=== PATIENT | female | born 1990 | race Caucasian/White ===

== ENCOUNTER 2017-08-02 12:21 | Emergency (ER) | payer OTHER ==
[2017-08-02 12:33] VITALS: BMI 24.3
--- NOTE | 2017-08-02 13:35 | PDOC ---
History of Present Illness - General Chief Complaint: Pain Stated Complaint: ABD PAIN (14 WKS ) Time Seen by Provider: 08/02/17 13:35 - History of Present Illness Initial Comments: 08/02/17 13:48 Ms. Oneill is a 26 yo female w/ no significant pmh who presents c/o a 2 day history of circumferential lower abdominal / lower back pain. She reports that this pain hurts all the way around and she cannot relate it to position, diet, change in urination, or any other factor. She had previously lost her first (although second produced her very health 14 month old son) and is worried this could be indicative of another threatened . She denies any bleeding currently but says that she had minimal spotting about a month ago. The patient denies chest pain, shortness of breath, headache and dizziness. Denies fever, chills, nausea, vomit, diarrhea and constipation. Denies dysuria, frequency, urgency and hematuria. Allergies: NKDA Past History - Past Medical History Allergies/Adverse Reactions: Allergies Allergy/AdvReac Type Severity Reaction Status Date / Time No Known Allergies Allergy Verified 08/02/17 12:29 Home Medications: Ambulatory Orders Vit No.130/Iron/FA [ Vitamins] 1 each PO DAILY #30 tablet 04/08 Acetaminophen [Tylenol -] 325 mg PO Q6H #20 tablet 08/02/17 Miconazole/Cleanser 17 On Wipe [Miconazole 3 Kit] 1 each VG ASDIR #1 kit Nitrofurantoin Monohyd/M-Cryst [Macrobid -] 100 mg PO BID #14 capsule 08/02/17 Asthma: No Cancer: No Cardiac Disorders: No COPD: No Diabetes: No HTN: No Seizures: No Thyroid Disease: No - Suicide/Smoking/Psychosocial Hx Smoking History: Never smoked Have you smoked in the past 12 months: No Information on smoking cessation initiated: No Hx Alcohol Use: No Drug/Substance Use Hx: No Substance Use Type: None Hx Substance Use Treatment: No Review of Systems - Review of Systems Comments:: 08/02/17 14:04 GENERAL/CONSTITUTIONAL: No fever or chills. No weakness. HEAD, EYES, EARS, NOSE AND THROAT: No change in vision. No ear pain or discharge. No sore throat. CARDIOVASCULAR: No chest pain or shortness of breath RESPIRATORY: No cough, wheezing, or hemoptysis. GASTROINTESTINAL: +Abdominal pain as described above. GENITOURINARY: No dysuria, frequency, or change in urination. MUSCULOSKELETAL: No joint or muscle swelling or pain. No neck or back pain. SKIN: No rash NEUROLOGIC: No headache, vertigo, loss of consciousness, or change in strength/ sensation. ENDOCRINE: No increased thirst. No abnormal weight change HEMATOLOGIC/LYMPHATIC: No anemia, easy bleeding, or history of blood clots. ALLERGIC/IMMUNOLOGIC: No hives or skin allergy. *Physical Exam - Vital Signs Last Vital Signs Temp Pulse Resp BP Pulse Ox 97.7 F 92 H 18 120/65 100 08/02/17 12:31 08/02/17 12:31 08/02/17 12:31 08/02/17 12:31 08/02/17 12:31 - Physical Exam Comments: 08/02/17 14:05 GENERAL: Awake, alert, and fully oriented, in no acute distress HEAD: No signs of trauma, normocephalic, atraumatic EYES: PERRLA, EOMI, sclera anicteric, conjunctiva clear ENT: Auricles normal inspection, hearing grossly normal, nares patent, oropharynx clear without exudates. Moist mucosa NECK: Normal ROM, supple, no lymphadenopathy, JVD, or masses LUNGS: No distress, speaks full sentences, clear to auscultation bilaterally HEART: Regular rate and rhythm, normal S1 and S2, no murmurs, rubs or gallops, peripheral pulses normal and equal bilaterally. ABDOMEN: +TTP in R and L lower quadrants. Similar tenderness in R/L CVA areas. Soft, normoactive bowel sounds. No guarding, no rebound. No masses EXTREMITIES: Normal inspection, Normal range of motion, no edema. No clubbing or cyanosis. NEUROLOGICAL: Cranial nerves II through XII grossly intact. Normal speech, normal gait, no focal sensorimotor deficits SKIN: Warm, Dry, normal turgor, no rashes or lesions noted. : Florid yeast infection noted on exam. Os closed, no adnexal tenderness or masses noted. Medical Decision Making - Medical Decision Making 08/02/17 14:43 Patient noted to have significant yeast infection on vaginal exam and 13 wbc's noted on UA. Rx sent for treatment for both, instructed patient to f/u w/ OB/ HELP DESK ENGINEER in 1-2 days and return as needed for pain, fever, etc. Will D/C pt to home. *DC/Admit/Observation/Transfer Diagnosis at time of Disposition: Yeast infection - Discharge Dispostion Disposition: HOME - Prescriptions Prescriptions: Acetaminophen [Tylenol -] 325 mg PO Q6H #20 tablet Miconazole/Cleanser 17 On Wipe [Miconazole 3 Kit] 1 each VG ASDIR #1 kit Nitrofurantoin Monohyd/M-Cryst [Macrobid -] 100 mg PO BID #14 capsule - Referrals Referrals: Mark Zarco MD [Primary Care Provider] - - Patient Instructions Printed Discharge Instructions: DI for Vaginal Yeast Infection Additional Instructions: Please return if any fever, chills, continued pain, or other concerning symptoms. Follow-up as discussed with [facility] SAL[facility] REPRESENTATIVE in 1-2 days for evaluation. - Post Discharge Activity
[2017-08-02 14:27] LABS: URINE APPEARANCE SLCLOUDY; URINE BILIRUBIN NEGATIVE (NEGATIVE); URINE BLOOD NEGATIVE (NEGATIVE); URINE COLOR YELLOW; URINE GLUCOSE (UA) NEGATIVE (NEGATIVE); URINE KETONE NEGATIVE (NEGATIVE); URINE LEUK ESTERASE TRACE (NEGATIVE); URINE NITRITE NEGATIVE (NEGATIVE); URINE PROTEIN NEGATIVE (NEGATIVE); URINE UROBILINOGEN NEGATIVE mg/dL (0.2-1.0)
[2017-08-02 14:34] LABS: URINE BACTERIA RARE /hpf (NONE SEEN); URINE MUCUS FEW; URINE RBC 1 /hpf (0-3); URINE WBC 13 /hpf (3-5)
[2017-08-02 15:10] VITALS: BP 123/72; PULSE 82; TEMP 98.2
--- NOTE | 2017-08-02 15:27 | PDOC ---
Attending Attestation - HPI HPI: 08/02/17 16:14 Patient is a 26 year old female,, 14 weeks , with a significant past medical history of who presents to the ED with complaints of superpubic pain that began 2 days ago. Patient reports superpubic pain is an intense pain that radiates to her back bilaterally. She reports experiencing intermittent vomiting episodes and dysuria. As per patient had recurrent UTIs during last and multiple vomiting episodes during her first . Denies fever, chills. Denies trauma to affected area. Denies contact with sick individuals, out of state travelling. Denies any other symptoms. Allergies: None Social history: Lives with . No smoking. No alcohol. No illicit drugs. Surgical history: None PMD: Dr. Zarco - Physicial Exam PE: 08/02/17 16:14 Vitals: Triage Vital signs reviewed General Appearance: no acute distress, well nourished well developed Head: Atraumatic Chest Wall: Nontender Cardiac: Regular rate and rhythm, no murmurs, no rubs, no gallops Lungs: Clear to auscultation bilateral, good air movement bilaterally Abdomen: Soft, non distended, normal bowel sounds, non tender to palpation Pelvis: +Mild superpubic discomfort. Extremities: Full range of motion to all extremities, no cyanosis, clubbing, or edema Skin: Warm and dry, no rashes or lesions, no rash, no petechiae Neuro: AOX3; Cranial Nerves 2-12 grossly intact, Strength intact to all extremities, Sensation intact to all extremities, gait normal Psych: Normal mood, normal affect - Medical Decision Making 08/02/17 16:14 Documentation prepared by Anson Fuentes, acting as medical reviewer for Fei Lauren MD, /DO. <Anson Fuentes - Last Filed: 08/02/17 16:13> - Resident Resident Name: Javier Valero - ED Attending Attestation I have performed the following: I have examined & evaluated the patient, The case was reviewed & discussed with the resident, I agree w/resident's findings & plan, Exceptions are as noted - Medical Decision Making 08/02/17 16:29 Patient well-appearing no apparent distress very mild suprapubic discomfort patient does not have acute abdomen slightly positive UA positive yeast on pelvic examination We'll treat with Macrobid Monistat cream have patient follow up with her OB/ [facility]. She'll return to the emergency department immediately for any fever severe worsening abdominal pain or for any concerns. <Fei Lauren - Last Filed: 08/02/17 16:29>
[2017-08-02 21:17] LABS: URINE LEUK ESTERASE TRACE (NEGATIVE)
== END 2017-08-02 15:09 | disposition home or self-care (01) ==
LOC: JER 12:21
DX: O26.891 Other specified pregnancy related conditions, first trimester (principal); Z3A.14 14 weeks gestation of pregnancy; B37.9 Candidiasis, unspecified
CPT/HCPCS: 81003; 81015; 99282-25

== ENCOUNTER 2018-01-10 07:45 | Inpatient (IN) | payer OTHER ==
[2018-01-10 09:00] LABS: BASO % 0.2 % (0-2.0); EOS % 0.1 % (0-4.5); HEMOGLOBIN 11.4 GM/dL (10.7-15.3); LYMPH % 12.5 % (8-40); MCH 29.7 pg (25.7-33.7); MCHC 33.6 g/dl (32.0-36.0); MEAN CELL VOLUME 88.4 fl (80-96); MONO % 6.8 % (3.8-10.2); NEUT % 80.4 % (42.8-82.8); PLATELET COUNT 137 K/MM3 (134-434); RBC 3.84 M/mm3 (3.60-5.2); RDW 15.2 % (11.6-15.6); WHITE BLOOD COUNT 5.8 K/mm3 (4.0-10.0)
[2018-01-10 09:09] VITALS: BMI 31.6
[2018-01-10] MEDS ORDERED: TUBERCULIN PPD 5 TU/0.1ML SYRINGE (IN PATIENT USE ONLY) ID ONE (09:15)
[2018-01-10 09:19] LABS: INR 0.95 (0.82-1.09); PROTHROMBIN TIME (PATIENT) 10.7 SEC (9.7-13.0)
[2018-01-10 09:22] LABS: ACTIVATED PTT 25.2 SECONDS (26.9-34.4)
[2018-01-10 09:25] LABS: ANION GAP 7 (8-16); BLOOD UREA NITROGEN 9 mg/dL (7-18); CALCIUM 8.6 mg/dL (8.5-10.1); CHLORIDE 106 mmol/L (98-107); CO2 26 mmol/L (21-32); CREATININE 0.5 mg/dL (0.55-1.02); GLUCOSE,RANDOM 87 mg/dL (74-106); POTASSIUM 4.3 mmol/L (3.5-5.1); SODIUM 139 mmol/L (136-145)
--- NOTE | 2018-01-10 11:36 | PN ---
Progress Note (short form) - Note Progress Note: cx 1 cm 50 vx -2 mi, fhr cat 1, irregular contraction, cervidil rba discussed , cervidil inserted
--- NOTE | 2018-01-10 11:44 | HP ---
Past Medical History - Primary Care Physician PCP:: Clark Quinn - Admission Chief Complaint: 39 weeks, maternal discomfort, requesting induction History of Present Illness: 27 yo f weeks, requesting induction secondary to maternal discomfort , multiple vidits to L&D , risks of induction discussed with patient and her History Source: Patient Limitations to Obtaining History: No Limitations - Past Medical History ...: 3 ...Para: 1 ...Term: 1 ...: 0 ...Spon : 1 ...Induced : 0 ...Multiple Gestation: 0 ...LMP: 04/11/17 ... Weeks Gestation by Dates: 39.1 ...EDC by Dates: 01/16/18 ...EDC by Sono: 01/15/18 Heme/Onc: Yes: Anemia Psych: Yes: Depression (history of - no meds, stable). No: Bipolar - Past Surgical History Past Surgical History: Yes: None Hx Myomectomy: No Hx Transabdominal Cerclage: No - Smoking History Smoking history: Never smoked Have you smoked in the past 12 months: No - Alcohol/Substance Use Hx Alcohol Use: No History of Substance Use: reports: None - Social History Usual Living Arrangement: Yes: With Spouse ADL: Independent History of Recent Travel: No Home Medications - Allergies Allergies/Adverse Reactions: Allergies Allergy/AdvReac Type Severity Reaction Status Date / Time No Known Allergies Allergy Verified 01/10/18 09:15 - Home Medications Home Medications: Ambulatory Orders Iron Sucrose Complex [Venofer] 50 mg IV WEEKLY 01/10/18 Review of Systems - Review of Systems Eyes: reports: No Symptoms HENT: reports: No Symptoms Neck: reports: No Symptoms Cardiovascular: reports: No Symptoms Respiratory: reports: No Symptoms Genitourinary: reports: Frequency Musculoskeletal: reports: Back Pain, Muscle Cramps Integumentary: reports: No Symptoms Neurological: reports: No Symptoms Endocrine: reports: No Symptoms Hematology/Lymphatic: reports: No Symptoms Psychiatric: reports: No Symptoms Physical Exam - Maternity Vital Signs: Vital Signs Temperature 98.7 F 01/10/18 10:00 Pulse Rate 85 01/10/18 11:00 Respiratory Rate 18 01/10/18 11:00 Blood Pressure 127/76 01/10/18 11:00 O2 Sat by Pulse Oximetry (%) Constitutional: Yes: Well Nourished, No Distress, Calm Eyes: Yes: WNL, Conjunctiva Clear, EOM Intact HENT: Yes: WNL, Atraumatic, Normocephalic Neck: Yes: WNL, Supple, Trachea Midline Cardiovascular: Yes: WNL, Regular Rate and Rhythm Breast(s): Yes: WNL - Abdominal Exam/OB Fundal Height: 40 Number of Fetuses: Single Presentation: Vertex Contractions: Yes Regularity: Irregular Intensity: Unaware Monitor Mode: External Heart Rate Location: [facility] Category: I Accelerations: Uniform - Vaginal Exam/OB Vaginal Bleediing: No Speculum Exam: No Dilatation (cm): 1 cm Effacement (%): 50 Amniotic Membrane Status: Intact Presentation: Vertex/Position Station: -2 - Physical Exam Extremities: Yes: WNL Edema: Yes Edema: LLE: 1+, RLE: 1+ Deep Tendon Reflex Grade: Normal +2 ...Motor Strength: WNL Psychiatric: Yes: WNL - Labs Lab Results: CBC, BMP 01/10/18 08:30 01/10/18 08:30 Hemorrhage Risk Assessment - Risk Factors Medium Risk Factors: Yes: None High Risk Factors: Yes: None Risk Score: 1 Risk Level: Medium Risk Problem List - Problems (1) with 39 completed weeks gestation Code(s): Z3A.39 - 39 WEEKS GESTATION OF (2) Anemia affecting Code(s): O99.019 - ANEMIA COMPLICATING , UNSPECIFIED TRIMESTER Qualifiers: Trimester: third trimester Qualified Code(s): O99.013 - Anemia complicating , third trimester (3) Elective induction of labor planned Code(s): [id number] - (4) Elective induction of labor planned Code(s): MNV5327 - Assessment/Plan admit for cervidil induction, favorable cervix, risks of cervidil and induction discussed with patient and her in detail . GBS positive ,will start in antibiotic when in labor
[2018-01-10] MEDS ORDERED: PROMETHAZINE HCL 25 MG/1 ML VIAL IVPB ONE (12:30)
[2018-01-10] MEDS ORDERED: BUTORPHANOL TARTRATE 1 MG/ML VIAL IVPB ONE (12:30)
[2018-01-10] MEDS ORDERED: DEXTROSE 5%-LACTATED RINGERS 1,000 ML IV SCH (12:30)
[2018-01-10] MEDS ORDERED: BUTORPHANOL TARTRATE 1 MG/ML VIAL ONE ×4 (12:51→15:27)
[2018-01-10] MEDS ORDERED: AMPICILLIN SODIUM 2 GM VIAL ONE (12:52)
[2018-01-10] MEDS ORDERED: PROMETHAZINE HCL 25 MG/1 ML VIAL ONE ×2 (12:52→15:28)
[2018-01-10] MEDS ORDERED: DINOPROSTONE 10 MG VAGINAL SUPPOSITORY VG ONE (13:15)
[2018-01-10] MEDS ORDERED: AMPICILLIN - 2 GM in SODIUM CHLORIDE 100 ML IVPB ONE (14:00)
[2018-01-10] MEDS ORDERED: BUTORPHANOL TARTRATE 1 MG/ML VIAL IVPUSH ONE (15:32)
[2018-01-10] MEDS ORDERED: PROMETHAZINE HCL 25 MG/1 ML VIAL IVPUSH ONE (15:32)
--- NOTE | 2018-01-10 15:34 | PN ---
Progress Note (short form) - Note Progress Note: cx 5 cm, 100 vx 0 mi ,bulging, fhr cat 1 contr1 to 2 min, wants more pain meds , epidural vs iv sedation discussed with iv meds. Problem List - Problems (1) with 39 completed weeks gestation Code(s): Z3A.39 - 39 WEEKS GESTATION OF (2) Anemia affecting Code(s): O99.019 - ANEMIA COMPLICATING , UNSPECIFIED TRIMESTER Qualifiers: Trimester: third trimester Qualified Code(s): O99.013 - Anemia complicating , third trimester
[2018-01-10] MEDS ORDERED: ELECTROLYTE-148 SOLN 1,000 ML IV SCH (16:00)
[2018-01-10] MEDS ORDERED: FENTANYL/BUPIVACAINE/NS/PF - PCEA - 50 ML DISP.SYRIN EP ONE (16:03)
[2018-01-10] MEDS ORDERED: NALOXONE HCL 0.4 MG/ML VIAL IVPUSH PRN (16:03)
[2018-01-10] MEDS ORDERED: FENTANYL/BUPIVACAINE/NS/PF - PCEA - 50 ML DISP.SYRIN EP SCH (16:15)
[2018-01-10] MEDS ORDERED: OXYTOCIN 20 UNITS in 0.9% NS 20 UNIT/1,000 ML INFUS.BAG IV ONE (17:14)
[2018-01-10] MEDS ORDERED: LIDOCAINE HCL 1% PRESERVATIVE FREE - 30ML VIAL ONE (17:22)
[2018-01-10] MEDS ORDERED: BENZOCAINE 28 GM HEMORRHOIDAL OINTMENT TP PRN (17:39)
[2018-01-10] MEDS ORDERED: METHYLERGONOVINE MALEATE 0.2 MG/1 ML AMP IM PRN (17:39)
[2018-01-10] MEDS ORDERED: BISACODYL 10 MG SUPP.RECT RC PRN (17:39)
[2018-01-10] MEDS ORDERED: oxyCODONE HCL 5 MG TABLET PO PRN (17:39)
[2018-01-10] MEDS ORDERED: WITCH HAZEL 50% (TUCKS) 40 PAD/JAR PAD TP PRN (17:39)
[2018-01-10] MEDS ORDERED: BENZOCAINE 20% 57 GM BOTTLE TP PRN (17:39)
[2018-01-10] MEDS ORDERED: OXYTOCIN 20 UNITS in 0.9% NS 20 UNIT/1,000 ML INFUS.BAG IV SCH (18:00)
[2018-01-10] MEDS ORDERED: AMPICILLIN - 1 GM in SODIUM CHLORIDE 100 ML IVPB SCH (18:00)
[2018-01-10] MEDS ORDERED: FERROUS SO4 325 MG TABLET (FP) PO SCH (18:00)
[2018-01-10 18:21] LABS: ARTERIAL BLOOD GAS BASE EXCESS 0.8 meq/l (-2-2); ARTERIAL BLOOD GAS PCO2 53.3 mmHg (35-45); ARTERIAL BLOOD GAS pH 7.33 (7.35-7.45)
[2018-01-10 18:30] LABS: ARTERIAL BLOOD GAS PO2 33.2 mmHg (80-100)
[2018-01-10 18:31] LABS: ARTERIAL BLD GAS O2 SATURATION 66.9 % (90-98.9)
[2018-01-10] MEDS: FERROUS SO4 325 MG TABLET (FP) PO SCH (19:40)
[2018-01-10] MEDS: IBUPROFEN 600 MG TABLET (FP) PO PRN (21:43)
[2018-01-10] MEDS: ACETAMINOPHEN 325 MG TABLET (FP) PO PRN (21:43)
--- NOTE | 2018-01-11 07:34 | PN ---
Post Progress Note - Subjective Subjective: No complains Post Day: 1 Type of Delivery: Vital Signs: Vital Signs Temperature 98.7 F 01/11/18 06:00 Pulse Rate 105 H 01/11/18 06:00 Respiratory Rate 20 01/11/18 06:00 Blood Pressure 118/60 01/11/18 06:00 O2 Sat by Pulse Oximetry (%) 100 01/10/18 19:15 Breast Exam: Yes: Soft Uterus: Yes: Fundus Firm Abdomen/GI: Yes: Abdomen soft Lochia: Yes: Rubra Lochia, amount: Small Extremities: Yes: Calves non-tender Perineum: Yes: Intact Activity: Ambulating - Labs Labs: CBC WBC 5.8 K/mm3 (4.0-10.0) 01/10/18 08:30 RBC 3.84 M/mm3 (3.60-5.2) 01/10/18 08:30 Hgb 11.4 GM/dL (10.7-15.3) 01/10/18 08:30 Hct 34.0 % (32.4-45.2) 01/10/18 08:30 MCV 88.4 fl (80-96) 01/10/18 08:30 MCH 29.7 pg (25.7-33.7) 01/10/18 08:30 MCHC 33.6 g/dl (32.0-36.0) 01/10/18 08:30 RDW 15.2 % (11.6-15.6) 01/10/18 08:30 Plt Count 137 K/MM3 (134-434) 01/10/18 08:30 MPV 9.0 fl (7.5-11.1) 01/10/18 08:30 Neutrophils % 80.4 % (42.8-82.8) 01/10/18 08:30 Lymphocytes % 12.5 % (8-40) 01/10/18 08:30 Monocytes % 6.8 % (3.8-10.2) 01/10/18 08:30 Eosinophils % 0.1 % (0-4.5) 01/10/18 08:30 Basophils % 0.2 % (0-2.0) 01/10/18 08:30 Assessment/Plan 27yo P1 s/p VSS, Afebrile Doing well borderline Tachycardia, likely due to dehydration, encouraged to have PO fluids Rh negative - s/p RhoGam encorage ambulation Plan to d/c in am male for circumcision
[2018-01-11] MEDS: FERROUS SO4 325 MG TABLET (FP) PO SCH ×2 (08:16→17:15)
[2018-01-11 08:54] LABS: BASO % 0.2 % (0-2.0); EOS % 0.1 % (0-4.5); HEMATOCRIT 27.5 % (32.4-45.2); HEMOGLOBIN 9.4 GM/dL (10.7-15.3); LYMPH % 12.4 % (8-40); MCH 30.1 pg (25.7-33.7); MEAN CELL VOLUME 88.3 fl (80-96); MEAN PLT VOLUME 8.6 fl (7.5-11.1); MONO % 6.4 % (3.8-10.2); NEUT % 80.9 % (42.8-82.8); PLATELET COUNT 111 K/MM3 (134-434); RBC 3.11 M/mm3 (3.60-5.2); RDW 15.1 % (11.6-15.6)
[2018-01-11] MEDS: IBUPROFEN 600 MG TABLET (FP) PO PRN ×3 (09:09→21:10)
[2018-01-11] MEDS: ACETAMINOPHEN 325 MG TABLET (FP) PO PRN ×3 (09:10→21:11)
[2018-01-11] MEDS: PRENATAL VITAMINS W/ FOLIC ACID TABLET (FP) PO SCH (09:11)
[2018-01-11] MEDS ORDERED: SENNOSIDES/DOCUSATE COMBO (SENNA PLUS) TABLET (UD) PO PRN (22:00)
--- NOTE | 2018-01-11 23:08 | DS ---
Physical Exam-[facility]ER Vital Signs: Vital Signs Temperature 98.5 F 01/11/18 13:30 Pulse Rate 97 H 01/11/18 13:30 Respiratory Rate 20 01/11/18 13:30 Blood Pressure 112/64 01/11/18 13:30 O2 Sat by Pulse Oximetry (%) 100 01/10/18 19:15 Constitutional: Yes: Well Nourished Eyes: Yes: WNL, Conjunctiva Clear, EOM Intact HENT: Yes: WNL, Atraumatic, Normocephalic Neck: Yes: WNL, Supple, Trachea Midline Cardiovascular: Yes: WNL, Regular Rate and Rhythm Respiratory: Yes: WNL, Regular, CTA Bilaterally Gastrointestinal: Yes: WNL, Normal Bowel Sounds, Soft Pelvis: Yes: WNL External Genitalia: Yes: Normal Internal Exam Deferred: Yes ....Post : Yes: Uterus firm, Uterus non-tender Breast(s): Yes: WNL Musculoskeletal: Yes: WNL Edema: Yes Edema: LUE: Trace, RUE: Trace, LLE: Trace, RLE: Trace Integumentary: Yes: WNL Neurological: Yes: WNL, Alert, Oriented ...Motor Strength: WNL Psychiatric: Yes: WNL, Alert, Oriented Labs: CBC, BMP 01/11/18 08:00 01/10/18 08:30 Delivery - Delivery Type of Anesthesia: Local, Epidural Episiotomy/Laceration: Perineal Extension/lac, 2nd degree EBL (cc): 300 Delivery, Single - Stages of Labor Date 1st Stage Initiatied: 01/10/18 Time 1st Stage Initiated: 12:00 Date 2nd Stage Initiated: 01/10/18 Time 2nd Stage Initiated: 17:10 Date of Delivery: 01/10/18 Time of Delivery: 17:17 Time Placenta Delivered: 17:20 Placenta: Yes: Spontaneous - Condition of Human Resource Manager/Rn Lab Present: No Gender: Male Weight: 8 lb 9 oz Position: Left, OA Total Hours ROM (Hrs/Mins): 1/50 - 1 Minute Total Score: 7 5 Minutes Total Score: 9 - [place] Feeding Plan Initial Plan: Elected not to breastfeed exclusively throughout hospitalization Discharge Summary Reason For Visit: labor Current Active Problems with 39 completed weeks gestation (Acute) Procedures: Principal: normal vaginal delivery Hospital Course: unremarkable Condition: Good - Instructions Diet, Activity, Other Instructions: Physical activity Resume your normal everyday activity as tolerated no heavy lifting or exercise until seen by your surgeon. You may walk unlimited elba of and climb stairs. You may resume driving the car when you feel safe and comfortable behind the wheel. No sexual activity as instructed. Wound care If you have a bandage, leave it on, and keep dry for 48-72 hours. After that time discard the outer bandage. If they are tapes on the skin under the out of bandage leave them in place. They will peel off in the next 7 to 10 days. Do Not Peel them off. You may shower the day after surgery. If there are tapes present on the skin, you may shower over them. Diet There are no dietary restrictions. Eat healthy, high-fiber foods. Drink 6 to 8 glasses of liquid each day. This will assist in keeping your bowels are regular. Pain management You may take Tylenol or acetaminophen or Ibuprofen (for example, Motrin, Advil etc.) from my pain prescription medication is ordered should be taken as prescribed for moderate to severe pain. Call MD for any of the following: Severe pain not relieved by medication Fever of 101 or higher Excessive bleeding or drainage on dressing Inability to urinate Referrals: Clark Quinn MD [Staff Physician] - Disposition: HOME - Home Medications Comprehensive Discharge Medication List: Ambulatory Orders Iron Sucrose Complex [Venofer] 50 mg IV WEEKLY 01/10/18
[2018-01-12] MEDS: FERROUS SO4 325 MG TABLET (FP) PO SCH (08:37)
[2018-01-12] MEDS: PRENATAL VITAMINS W/ FOLIC ACID TABLET (FP) PO SCH (09:41)
[2018-01-12] MEDS: IBUPROFEN 600 MG TABLET (FP) PO PRN (09:43)
[2018-01-12] MEDS: ACETAMINOPHEN 325 MG TABLET (FP) PO PRN (09:44)
[2018-01-12 12:21] VITALS: BP 128/64; PULSE 101; TEMP 98.7
== END 2018-01-12 11:00 | disposition home or self-care (01) | DRG 560 ==
LOC: JLDR 07:45 → J3W 19:58
PROVIDERS: ADMIT Obstetrics & Gynecology; ATTEND Obstetrics & Gynecology
PROC: 0KQM0ZZ Repair Perineum Muscle, Open Approach (ICD-10-PCS; principal; 2018-01-10)
PROC: 10E0XZZ Delivery of Products of Conception, External Approach (ICD-10-PCS; 2018-01-10)
PROC: 3E0P7VZ Introduction of Hormone into Female Reproductive, Via Natural or Artificial Opening (ICD-10-PCS; 2018-01-10)
DX: O99.02 Anemia complicating childbirth (principal); O70.1 Second degree perineal laceration during delivery; R00.0 Tachycardia, unspecified; E86.0 Dehydration; Z3A.39 39 weeks gestation of pregnancy; Z37.0 Single live birth
CPT/HCPCS: 36415; 36600; 59409; 80048; 82803; 85025; 85461; 85610; 85730; 86593; 86850; 86900; 86901; 86999

== ENCOUNTER 2023-12-14 15:45 | Day surgery (SDC) | payer BC ==
[2023-12-14] MEDS: IRON SUCROSE INJECTION 300 MG in SODIUM CHLORIDE 250 ML IVPB ONE (16:00)
[2023-12-14 16:27] VITALS: RESP 18; TEMP 97.8
[2023-12-14 17:36] VITALS: BP 101/63; PULSE 77
== END 2023-12-14 17:49 | disposition home or self-care (01) ==
LOC: J7W 15:45 → JONCNONCHE 15:45
PROVIDERS: ATTEND Internal Medicine Hematology & Oncology
PROC: 3E033GC Introduction of Other Therapeutic Substance into Peripheral Vein, Percutaneous Approach (ICD-10-PCS; principal; 2023-12-14)
DX: D64.9 Anemia, unspecified (principal)
CPT/HCPCS: 96365; J1756

== ENCOUNTER 2023-12-21 15:55 | Day surgery (SDC) | payer BC ==
[2023-12-21] MEDS: IRON SUCROSE INJECTION 300 MG in SODIUM CHLORIDE 250 ML IVPB ONE (15:59)
[2023-12-21 17:10] VITALS: RESP 18; TEMP 98
[2023-12-21 17:59] VITALS: BP 98/67; PULSE 69
== END 2023-12-21 18:02 | disposition home or self-care (01) ==
LOC: JONCNONCHE 15:55 → J7W 15:55 → JONCNONCHE 18:02
PROVIDERS: ATTEND Internal Medicine Hematology & Oncology
PROC: 3E033GC Introduction of Other Therapeutic Substance into Peripheral Vein, Percutaneous Approach (ICD-10-PCS; principal; 2023-12-21)
DX: D64.9 Anemia, unspecified (principal)
CPT/HCPCS: 96365; J1756

== ENCOUNTER 2023-12-28 15:35 | Day surgery (SDC) | payer BC ==
[2023-12-28] MEDS: IRON SUCROSE INJECTION 300 MG in SODIUM CHLORIDE 250 ML IVPB ONE (15:40)
[2023-12-28 16:49] VITALS: RESP 20; TEMP 97.9
[2023-12-28 17:25] VITALS: BP 98/55; PULSE 80
== END 2023-12-28 17:40 | disposition home or self-care (01) ==
LOC: J7W 15:35 → JONCNONCHE 15:35
PROVIDERS: ATTEND Internal Medicine Hematology & Oncology
PROC: 3E033GC Introduction of Other Therapeutic Substance into Peripheral Vein, Percutaneous Approach (ICD-10-PCS; principal; 2023-12-28)
DX: D64.9 Anemia, unspecified (principal)
CPT/HCPCS: 96365; J1756

== ENCOUNTER 2024-01-05 15:45 | Day surgery (SDC) | payer BC ==
[~2024-01-05 15:45] MED LIST: IRON SUCROSE INJECTION 300 MG in SODIUM CHLORIDE 250 ML IVPB ONE
[2024-01-05] MEDS: IRON SUCROSE INJECTION 300 MG in SODIUM CHLORIDE 250 ML IVPB ONE (15:45)
[2024-01-05 15:55] VITALS: RESP 18; TEMP 97.8
[2024-01-05 17:22] VITALS: BP 110/64; PULSE 74
== END 2024-01-05 17:26 | disposition home or self-care (01) ==
LOC: JONCNONCHE 15:45 → J7W 15:45 → JONCNONCHE 17:26
PROVIDERS: ATTEND Internal Medicine Hematology & Oncology
PROC: 3E033GC Introduction of Other Therapeutic Substance into Peripheral Vein, Percutaneous Approach (ICD-10-PCS; principal; 2024-01-05)
DX: D50.9 Iron deficiency anemia, unspecified (principal)
CPT/HCPCS: J1756